=== PATIENT | female | born 1955 | race Caucasian/White ===

== ENCOUNTER 2016-11-17 16:29 | Emergency (ER) | payer BC, MEDICARE | END 2016-11-17 17:06 | disposition left against medical advice (07) | LOC: ER1 16:29 | DX: Z53.21 Procedure and treatment not carried out due to patient leaving prior to being seen by health care provider (principal) ==

== ENCOUNTER → 2016-11-18 | Outpatient (CLI) | payer BC, MEDICARE ==
[2016-11-18 12:41] LABS: HEMOGLOBIN 15.8 gm/dl (12.3-15.3); RED BLOOD COUNT 5.07 M/UL (4.00-5.10); WHITE BLOOD COUNT 14.3 K/UL (4.5-11.0)
[2016-11-18 13:01] LABS: BUN/CREATININE RATIO 20 (0-10)
== END ==
LOC: LAB 10:47
PROVIDERS: Internal Medicine; Nurse Practitioner
DX: J06.9 Acute upper respiratory infection, unspecified (principal); E78.5 Hyperlipidemia, unspecified; J43.9 Emphysema, unspecified
CPT/HCPCS: 36415; 71020; 80053; 80061; 83036; 84436; 84443; 84480; 85025

== ENCOUNTER → 2017-04-15 | Outpatient (CLI) | payer BC, MEDICARE, OTHER | LOC: KOH-I 14:20 | DX: R07.9 Chest pain, unspecified (principal); J43.9 Emphysema, unspecified; R91.8 Other nonspecific abnormal finding of lung field; Z95.1 Presence of aortocoronary bypass graft; F17.200 Nicotine dependence, unspecified, uncomplicated; Z85.828 Personal history of other malignant neoplasm of skin | CPT/HCPCS: 71250 ==

== ENCOUNTER → 2020-10-01 | Outpatient (CLI) | payer BC, MEDICARE ==
[~2020-10-01] MED LIST: ANTIVERT 25MG T25 MG PO; AUGMENTIN 875-1 EACH PO; CYMBALTA60 MG PO; ECOTRIN81 MG PO; ESTRADIOL PATCH TD; GLUCOPHAGE 500500 MG PO; IMDUR ER TAB 3030 MG PO; LANTUS100 UNIT/1 SC; LEVAQUIN750 MG PO; LIPITOR TAB 2020 MG PO; LOPRESSOR 25 MG25 MG PO; SINGULAIR10 MG PO; SKELAXIN TAB 8800 MG PO
== END ==
LOC: KOH-I 08:00
DX: G44.209 Tension-type headache, unspecified, not intractable (principal)
CPT/HCPCS: 70551

== ENCOUNTER → 2020-10-08 | Outpatient (CLI) | payer BC, MEDICARE | LOC: CT 07:40 | DX: R22.1 Localized swelling, mass and lump, neck (principal); E04.1 Nontoxic single thyroid nodule | CPT/HCPCS: 36415; 70492; 82565; Q9963 ==

== ENCOUNTER → 2020-10-23 | Outpatient (CLI) | payer BC, MEDICARE | LOC: KOH-I 15:17 | DX: E04.1 Nontoxic single thyroid nodule (principal) | CPT/HCPCS: 76536 ==

== ENCOUNTER → 2022-01-22 | Outpatient (CLI) | payer BC, MEDICARE | LOC: LAB 11:17 | DX: N39.0 Urinary tract infection, site not specified (principal); M54.51 Vertebrogenic low back pain | CPT/HCPCS: 87077; 87086; 87186 ==

== ENCOUNTER → 2022-02-17 | Outpatient (CLI) | payer BC, MEDICARE | LOC: CT 12:48 | DX: M54.6 Pain in thoracic spine (principal); R10.9 Unspecified abdominal pain | CPT/HCPCS: 71250 ==

== ENCOUNTER → 2022-03-18 | Outpatient (CLI) | payer BC, MEDICARE | LOC: LAB 10:15 | DX: N39.0 Urinary tract infection, site not specified (principal); M54.51 Vertebrogenic low back pain | CPT/HCPCS: 87086 ==